=== PATIENT | female | born 1955 | race Caucasian/White ===

== ENCOUNTER 2021-01-07 01:26 | Day surgery (SDC) | payer OTHER ==
[2021-01-07] MEDS ORDERED: PRED5 PO (14:01)
[2021-01-07] MEDS ORDERED: AZAT50 PO (14:05)
--- NOTE | 2021-01-07 16:23 | NUR ---
POST INFUSION PT CHECKED ON EVERY 15 MINUTES WITH NO REQUESTS OR ISSUES. PT D/C'D IN STABLE CONDITION.
[2021-01-08] MEDS ORDERED: LIDO700A20 TOP (22:21)
[2021-01-08] MEDS ORDERED: IBUP600 PO (22:21)
== END 2021-01-07 16:05 | disposition home or self-care (01) ==
LOC: ATC 01:26
DX: U07.1 COVID-19 (principal); K75.4 Autoimmune hepatitis; D84.9 Immunodeficiency, unspecified; Z88.1 Allergy status to other antibiotic agents; Z88.5 Allergy status to narcotic agent
CPT/HCPCS: 96365; Q0243

== ENCOUNTER 2021-01-08 18:03 | Emergency (ER) | payer OTHER ==
[~2021-01-08] VITALS: Ht 154.9 cm; Wt 68.0 kg
[~2021-01-08 18:03] MED LIST: AZAT50 PO; PRED5 PO
[2021-01-08 19:00] LABS: BASOPHILS ABSOLUTE AUTO 0.02 K/mm3 (0.00-0.23); BASOPHILS PERCENT AUTO 0 % (0-2); EOSINOPHILS ABSOLUTE AUTO 0.01 K/mm3 (0.00-0.68); EOSINOPHILS PERCENT AUTO 0 % (0-6); Hematocrit 41.9 % (33.0-51.0); Hemoglobin 14.2 g/dL (11.5-16.0); IMMATURE GRAN ABSOLUTE AUTO 0.02 K/mm3 (0.00-0.10); IMMATURE GRAN PERCENT AUTO 0 % (0-1); LYMPHOCYTES ABSOLUTE AUTO 1.87 K/mm3 (0.84-5.20); LYMPHOCYTES PERCENT AUTO 31 % (21-46); MONOCYTES ABSOLUTE AUTO 0.49 K/mm3 (0.16-1.47); MONOCYTES PERCENT AUTO 8 % (4-13); Mean Corpuscular HGB 31.3 pg (26.0-34.0); Mean Corpuscular HGB Conc 33.9 g/dL (31.5-36.5); Mean Corpuscular Volume 93 fL (80-100); Mean Platelet Volume 9.2 fL (9.1-12.4); NEUTROPHILS ABSOLUTE AUTO 3.68 K/mm3 (1.96-9.15); NEUTROPHILS PERCENT AUTO 61 % (41-73); Platelet Count 237 K/mm3 (150-400); RDW Coefficient Variation 14.4 % (11.7-14.2); RDW Standard Deviation 49.5 fL (35.1-46.3); Red Blood Cell Count 4.53 M/mm3 (3.80-5.20); White Blood Cell Count 6.09 K/mm3 (4.00-11.30)
[2021-01-08 19:28] LABS: Albumin, Blood 3.3 g/dL (3.4-5.0); Albumin/Globulin Ratio 0.8 (0.8-1.8); Bilirubin, Total 0.4 mg/dL (0.1-1.0); Calcium, Blood 8.7 mg/dL (8.5-10.1); Creatinine, Blood 1.08 mg/dL (0.40-1.00); Globulin, Blood 4.3 g/dL (2.2-4.0); Magnesium, Blood 2.2 mg/dL (1.6-2.4); Potassium, Blood 4.5 mmol/L (3.5-5.5); Total Protein, Blood 7.6 g/dL (6.4-8.2)
[2021-01-08] MEDS ORDERED: IBUP600 PO (22:21)
[2021-01-08] MEDS ORDERED: LIDO700A20 TOP (22:21)
== END 2021-01-08 22:23 | disposition home or self-care (01) ==
LOC: ER 18:03
PROVIDERS: Emergency Medicine Emergency Medical Services
DX: M54.31 Sciatica, right side (principal); U07.1 COVID-19; Z88.2 Allergy status to sulfonamides; Z88.8 Allergy status to other drugs, medicaments and biological substances; Z88.5 Allergy status to narcotic agent
CPT/HCPCS: 36415; 80053; 83735; 85025; 93971; 99284-25; A9270

== ENCOUNTER 2021-09-06 11:53 | Day surgery (SDC) | payer OTHER ==
[~2021-09-06] VITALS: Ht 157.5 cm; Wt 66.8 kg
[~2021-09-06 11:53] MED LIST changes: +IBUP600 PO; +LIDO700A20 TOP; +ROSU5 PO; +VALA500 PO
== END 2021-09-06 14:48 | disposition home or self-care (01) ==
LOC: ORSCSDS 11:53
PROVIDERS: Internal Medicine Gastroenterology
PROC: 0DBK8ZX Excision of Ascending Colon, Via Natural or Artificial Opening Endoscopic, Diagnostic (ICD-10-PCS; principal; 2021-09-06 13:30)
DX: Z12.11 Encounter for screening for malignant neoplasm of colon (principal); D12.2 Benign neoplasm of ascending colon; K57.30 Diverticulosis of large intestine without perforation or abscess without bleeding; Z87.891 Personal history of nicotine dependence; Z79.899 Other long term (current) drug therapy
CPT/HCPCS: 88305; J2405; J2704; J7120